=== PATIENT | female | born 1990 | race Caucasian/White ===

== ENCOUNTER 2017-12-09 02:07 | Emergency (ER) | payer OTHER, MEDICAID ==
[~2017-12-09] VITALS: Ht 160 cm; Wt 102.1 kg
[~2017-12-09 02:07] MED LIST: ACETAMINOPHEN-1 EAC1 PO; NOHOMEMEDICATIONS
[2017-12-09 02:13] VITALS: BP 124/92
[2017-12-09] MEDS ORDERED: NORCO 5-325 TA1 EACH PO (02:15)
[2017-12-09] MEDS ORDERED: AMOXICILLIN 50500 MG PO (02:15)
== END 2017-12-09 02:19 | disposition home or self-care (01) ==
LOC: M.ERS 02:07
DX: K08.89 Other specified disorders of teeth and supporting structures (principal); Z90.89 Acquired absence of other organs

== ENCOUNTER 2018-01-26 10:29 | Emergency (ER) | payer OTHER, MEDICAID ==
[~2018-01-26] VITALS: Ht 162.6 cm; Wt 104.3 kg
[~2018-01-26 10:29] MED LIST changes: +AMOXICILLIN 50500 MG PO; +NORCO 5-325 TA1 EACH PO
[2018-01-26] MEDS ORDERED: CIPROFLOXIN HC2.5 M1 OTIC (11:04)
[2018-01-26] MEDS ORDERED: KEFLEX500 M1 PO (11:04)
[2018-01-26] MEDS ORDERED: ACETAMINOPHEN-1 EAC1 PO (11:04)
[2018-01-26 11:21] VITALS: BP 134/90
== END 2018-01-26 11:24 | disposition home or self-care (01) ==
LOC: M.ERS 10:29
DX: H66.91 Otitis media, unspecified, right ear (principal); H60.91 Unspecified otitis externa, right ear